=== PATIENT | female | born 1965 | race Asian ===

== ENCOUNTER 2018-05-31 06:32 | Emergency (ER) | payer OTHER ==
[~2018-05-31] VITALS: Wt 64.0 kg
[2018-05-31 06:36] VITALS: BP 102/77; PULSE 83; RESP 18
[2018-05-31] MEDS ORDERED: PRED20TA PO (07:08)
[2018-05-31] MEDS ORDERED: BEN50 PO (07:08)
[2018-05-31] MEDS ORDERED: FAMO-96 PO (07:08)
--- NOTE | 2018-05-31 09:09 | ERD ---
ER Documentation Chief Complaint Chief Complaint RASH/HIVES ALL OVER X2 DAYS, NO SOB HPI 53-year-old female presents the emergency department complaining of rash. Patient states over the last 2 days, after traveling, she developed an urticarial rash. She developed no fevers, chills, difficulty swallowing, difficulty speaking or shortness of breath. Despite the use of Benadryl, she continues to have the rash. ROS All systems reviewed and are negative except as per history of present illness. Medications Home Meds Active Scripts Prednisone* (Prednisone*) 20 Mg Tab, 60 MG PO DAILY for 5 Days, TAB Prov:MIKAEL,SEPIDEH 05/31/18 Famotidine* (Pepcid*) 20 Mg Tablet, 20 MG PO BID for 4 Days, TAB Prov:MIKAEL,SEPIDEH 05/31/18 Diphenhydramine Hcl* (Benadryl*) 50 Mg Cap, 50 MG PO Q6H PRN for ITCHING/RASH, #30 CAP Prov:MIKAEL,SEPIDEH 05/31/18 Allergies Allergies: Coded Allergies: No Known Allergy (Unverified , 05/31/18) PMhx/Soc History of Surgery: Yes () Anesthesia Reaction: No Hx Neurological Disorder: No Hx Respiratory Disorders: No Hx Cardiac Disorders: No Hx Psychiatric Problems: No Hx Miscellaneous Medical Probl: No Hx Alcohol Use: No Hx Substance Use: No Hx Tobacco Use: No Smoking Status: Never smoker FmHx Noncontributory for chief complaint Physical Exam Vitals Vital Signs Date Temp Pulse Resp B/P (MAP) Pulse Ox O2 O2 Flow FiO2 Time Delivery Rate 05/31/18 97.6 83 18 102/77 98 06:36 (85) Physical Exam GENERAL: The patient is well developed and appropriate for usual state of health in no apparent distress HEENT: Pupils equal, round, and reactive to light. EOMI. There is no scleral icterus. Oropharynx without tonsillar hypertrophy or tongue swelling NECK: C-spine is soft and supple, there is no meningismus. There is no cervical lymphadenopathy. No stridor LUNGS: Clear to auscultation bilaterally. There are no rales, wheezes or rhonchi. HEART: Regular rate and rhythm, no murmurs, clicks, rubs or gallops. ABDOMEN: Soft, non-tender, non-distended. There are bowel sounds in all four quadrants. No rebound or guarding. EXTREMITIES: There is no peripheral cyanosis or edema. No focal swelling or erythema. NEURO: The patient moves all four extremities with 5/5 strength. Cranial nerves II - XII are intact. Normal gait. Alert and oriented SKIN: Urticaria without infection is noted HEME/LYMPHATIC: There is no evidence of excessive bruising or lymphedema. PSYCHIATRIC: The patient does not appear anxious or depressed. Procedures/MDM Patient was taken to a room, seen and examined Medical decision makin-year-old otherwise healthy female presents with an urticarial type reaction. Patient shows no evidence of anaphylaxis or anaphylactoid type reaction. She is appropriate for outpatient supportive care. Departure Diagnosis: Primary Impression: Allergic reaction Condition: Stable Patient Instructions: First Aid: Allergic Reactions Referrals: NO PRIMARY,CARE PHYSICIAN (PCP) Additional Instructions: Please return here for any trouble breathing, fevers or concerns SEPIDEH YOUSSEF May 31, 2018 09:09
== END 2018-05-31 07:20 | disposition home or self-care (01) ==
LOC: FTE 06:32
DX: L50.0 Allergic urticaria (principal)
CPT/HCPCS: 99283

== ENCOUNTER 2018-06-06 23:00 | Emergency (ER) | payer OTHER ==
[~2018-06-06] VITALS: Ht 154.9 cm; Wt 62.9 kg
[~2018-06-06 23:00] MED LIST: BEN50 PO; FAMO-96 PO; PRED20TA PO
[2018-06-06 23:09] VITALS: Ht 154.9 cm; Wt 62.9 kg
[2018-06-07] MEDS ORDERED: ONDANSETRON 4 MG INJ IV STA (02:23)
[2018-06-07] MEDS ORDERED: morphine 4 MG/ML VIAL IV STA (02:23)
[2018-06-07] MEDS ORDERED: SOD CHLORIDE 0.9% 500 ML IV STA (02:23)
[2018-06-07] MEDS ORDERED: EXCED PO (05:15)
[2018-06-07 05:40] VITALS: BP 134/79; PULSE 104; RESP 19
--- NOTE | 2018-06-07 05:41 | ERD ---
ER Documentation Chief Complaint Chief Complaint AP/ VOMITING X'S 2 DAYS HPI Is a very pleasant 53 female comes in with abdominal pain vomiting for the past 2 days. Pain is mild to moderate intensity with no exacerbating factors since localized to the right lower quadrant. She denies any fevers or chills. Denies any other current complaints. She had 3-4 episodes of vomiting nonbilious nonbloody. No sick contacts. No other current issues. ROS All systems reviewed and are negative except as per history of present illness. Medications Home Meds Active Scripts Prednisone* (Prednisone*) 20 Mg Tab, 60 MG PO DAILY for 5 Days, TAB Prov:SEPIDEH YOUSSEF 05/31/18 Famotidine* (Pepcid*) 20 Mg Tablet, 20 MG PO BID for 4 Days, TAB Prov:SEPIDEH YOUSSEF 05/31/18 Diphenhydramine Hcl* (Benadryl*) 50 Mg Cap, 50 MG PO Q6H PRN for ITCHING/RASH, #30 CAP Prov:SEPIDEH YOUSSEF 05/31/18 Reported Medications Acetaminophen/Aspirin/Caffeine* (Excedrin*) 1 Tab Tab, 1 TAB PO, TAB 06/07/18 Allergies Allergies: Coded Allergies: Penicillins (Unverified Allergy, Unknown, RASHES, 06/07/18) PMhx/Soc History of Surgery: Yes () Anesthesia Reaction: No Hx Neurological Disorder: No Hx Respiratory Disorders: No Hx Cardiac Disorders: No Hx Psychiatric Problems: No Hx Miscellaneous Medical Probl: No Hx Alcohol Use: No Hx Substance Use: No Hx Tobacco Use: No Smoking Status: Never smoker Physical Exam Vitals Vital Signs Date Temp Pulse Resp B/P (MAP) Pulse Ox O2 O2 Flow FiO2 Time Delivery Rate 06/07/18 87 16 135/88 98 Room Air 04:19 (104) 06/06/18 98.3 88 18 140/91 100 23:09 (107) Physical Exam Const: No acute distress Head: Atraumatic Eyes: Normal Conjunctiva ENT: Normal External Ears, Nose and Mouth. Neck: Full range of motion. No meningismus. Resp: Clear to auscultation bilaterally Cardio: Regular rate and rhythm, no murmurs Abd: Soft, non tender, non distended. Normal bowel sounds Skin: No petechiae or rashes Back: No midline or flank tenderness Ext: No cyanosis, or edema Neur: Awake and alert Psych: Normal Mood and Affect Result Diagram: 06/07/18 0235 06/07/18 0235 Results 24 hrs Laboratory Tests Test 06/07/18 02:35 06/07/18 02:36 06/07/18 02:42 White Blood Count 14.0 10^3/ul Red Blood Count 4.93 10^6/ul Hemoglobin 14.2 g/dl Hematocrit 43.6 % Mean Corpuscular Volume 88.4 fl Mean Corpuscular Hemoglobin 28.8 pg Mean Corpuscular 32.6 g/dl Hemoglobin Concent Red Cell Distribution Width 12.4 % Platelet Count 369 10^3/UL Mean Platelet Volume 9.3 fl Immature Granulocytes % 0.500 % Neutrophils % 76.7 % Lymphocytes % 16.1 % Monocytes % 5.9 % Eosinophils % 0.2 % Basophils % 0.6 % Nucleated Red Blood Cells % 0.0 /100WBC Immature Granulocytes # 0.070 10^3/ul Neutrophils # 10.7 10^3/ul Lymphocytes # 2.3 10^3/ul Monocytes # 0.8 10^3/ul Eosinophils # 0.0 10^3/ul Basophils # 0.1 10^3/ul Nucleated Red Blood Cells # 0.0 10^3/ul Sodium Level 145 mmol/L Potassium Level 4.0 mmol/L Chloride Level 104 mmol/L Carbon Dioxide Level 25 mmol/L Anion Gap 16 Blood Urea Nitrogen 11 mg/dl Creatinine 0.64 mg/dl Est Glomerular Filtrat > 60 mL/min Rate mL/min Glucose Level 109 mg/dl Calcium Level 10.0 mg/dl Total Bilirubin 0.7 mg/dl Direct Bilirubin 0.00 mg/dl Indirect Bilirubin 0.7 mg/dl Aspartate Amino 36 IU/L Transf (AST/SGOT) Alanine 36 IU/L Aminotransferase (ALT/SGPT) Alkaline Phosphatase 82 IU/L Troponin I < 0.012 ng/ml Total Protein 8.6 g/dl Albumin 4.8 g/dl Globulin 3.80 g/dl Albumin/Globulin Ratio 1.26 Lipase 111 U/L Urine Color YELLOW Urine Clarity CLEAR Urine pH 6.0 Urine Specific [place] 1.011 Urine Ketones TRACE mg/dL Urine Nitrite NEGATIVE mg/dL Urine Bilirubin NEGATIVE mg/dL Urine Urobilinogen NEGATIVE mg/dL Urine Leukocyte Esterase 2+ Matheus/ul Urine Microscopic RBC 3 /HPF Urine Microscopic WBC 5 /HPF Urine Squamous Epithelial Cells FEW /HPF Urine Bacteria FEW /HPF Urine Hemoglobin NEGATIVE mg/dL Urine Glucose NEGATIVE mg/dL Urine Total Protein NEGATIVE mg/dl POC Beta HCG, Qualitative NEGATIVE Current Medications Medications Dose Sig/Sarita Start Time Status Last (Trade) Ordered Route PRN Stop Time Admin Dose Reason Admin Sodium 500 ml @ Q1H STAT 06/07/18 DC 06/07/18 Chloride 500 mls/hr IV 02:23 02:47 06/07/18 03:22 Morphine 4 mg ONCE STAT 06/07/18 DC 06/07/18 Sulfate IV 02:23 02:46 (morphine) 06/07/18 02:24 Ondansetron 4 mg ONCE STAT 06/07/18 DC 06/07/18 HCl (Zofran IV 02:23 02:46 Inj) 06/07/18 02:24 Procedures/MDM Emergency department course: Patient seen about by triage nurse. Placed in bed for evaluation. Had blood work done. Serial exams are stable. Medical decision makin-year-old female with abdominal pain nonspecific etiology. At this point clinically stable for trial of outpatient management. Has been advised follow-up in 8 hours for serial abdominal exams. Patient's gastrointestinal symptoms have stabilized while in the department. No evidence of severe dehydration, sepsis, or surgical abdomen. Extensive discussion with family and patient that occult disease cannot be ruled out. 8 hour recheck for repeat abdominal exam is planned. Departure Diagnosis: Primary Impression: Abdominal pain Abdominal location: unspecified location Qualified Codes: R10.9 - Unspecified abdominal pain Condition: Stable TOMASA TUCKER Jun 07, 2018 05:41
[2018-06-07] MEDS ORDERED: METR500T PO (05:48)
[2018-06-07] MEDS ORDERED: TRAM50TA2 PO (05:48)
[2018-06-07] MEDS ORDERED: ONDA4TAB14 PO (05:48)
[2018-06-07] MEDS ORDERED: CIPR500T4 PO (05:48)
== END 2018-06-07 06:04 | disposition home or self-care (01) ==
LOC: E/R 23:00
DX: R10.31 Right lower quadrant pain (principal); R11.10 Vomiting, unspecified
CPT/HCPCS: 71045; 74176; 80053; 81001; 81025; 83690; 84484; 85025; 93005; 96374; 96375; J2270; J2405; J7040; Z7502